=== PATIENT | female | born 1955 | race Caucasian/White ===

== ENCOUNTER 2016-04-26 05:00 | Emergency (ER) ==
--- NOTE | 2016-04-26 05:17 | PROVIDER DOCUMENTATION ---
HPI-Musculoskeletal Pain/Inj - GENERAL Chief Complaint: Extremity Injury Stated Complaint: FALL/ RIGHT ANKLE INJURY Time Seen by Provider: 04/26/16 05:04 Source: patient - HX OF PRESENT ILLNESS-MUSKULOSKELTAL Nature of Presenting Problem: pt miss one step and fell in the house ,inmediately w/lt ankle pain, unable to put wait on it ..pt denies any other injuries.. Quality of Pain: reports: aching, pressure Severity in ED: moderate Onset/Duration: just prior to arrival Timing: still present Modifying Factors: improves with: movement Similar Symptoms Previously?: No Recently seen or treated by another doctor?: No - FALL INJURY Location of Pain/Injury: reports: other (skinn abrasion on her chin) Pain Radiation: reports: no radiation Reason for Fall: reports: tripped Symptoms prior to fall:: reports: none Loss of Consciousness: no loss of consciousness Injury Associated Symptoms: reports: denies symptoms - BACK & NECK PAIN/INJURY Back/Neck Pain Location: denies: C-spine, T-spine, lumbar spine Back/Neck Pain Radiation: denies: headache Associated Symptoms: reports: denies symptoms History of Chronic Neck or Back Pain?: No - TRUNK INJURY Location of Injury(s)/Pain: denies: chest, abdomen Associated Symptoms: reports: denies symptoms - HIP/PELVIS PAIN/INJURY Hip Pain Location: denies: hip (R), hip (L), pelvis Review of Systems - Adult - REVIEW OF SYSTEMS - ADULT Constitutional: reports: see HPI Past History - Adult - PAST MEDICAL HISTORY-ADULT Review of Records: reports: Old Records Reviewed, Nursing Assessment Review. denies: Social history reviewed & non-contributory. Cardiovascular: reports: denies history Respiratory: reports: denies history Gastrointestinal: reports: denies history Genitourinary: reports: denies history Musculoskeletal: reports: denies history Neurological: reports: denies history Psychiatric: reports: denies history Diabetes Type: Type 2 Other Conditions: reports: denies history - PRIOR SURGERIES/PROCEDURES Surgical/Procedure History: reports: reviewed, not pertinent - IMMUNIZATION STATUS Childhood Immunizations: See Nurse Assessment Flu Vaccine: See Nurse Assessment - SOCIAL HISTORY Smoking: greater than 1 pack/day Substance Use: none/never Alcohol Use Frequency: never Living Situation: alone Physical Exam-Injury Related - Physical Exam-Injury Related Initial Vital Signs Reviewed: Yes General Appearance: appears well, alert, no apparent distress Eyes: PERRL/EOMI Head, Ears, Nose, Mouth & Throat: normocephalic/atraumatic, moist mucous membranes, normal ENT inspection, TMs normal, pharyngeal erythema Neck: non-tender Respiratory: chest non-tender, lungs clear, normal breath sounds, no pleuratic chest pain, no respiratory distress Cardiovascular: normal peripheral pulses Chest/Breast: normal breast inspection Abdominal Exam: normal bowel sounds, non tender, soft Lymphatic: no adenopathy Back Exam: normal inspection Extremity: pelvis stable, swelling (lt ankle), tenderness. negative: normal gait Integumentary: normal color, warm/dry, blanching, warm, abrasion (chin) Neurologic: regional operations manager II-XII nml as tested, grossly normal, no motor/sensory deficits Psych/Mental Status: normal mood/affect, normal thought content - Glascow Coma Score Best Eye Response (En): (4) open spontaneously Best Verbal Response ([place]): (5) oriented Best Motor Response ([place]): (6) obeys commands Progress - XRAY 1 XRAY Study: Ankle (calcaneus fx) Departure - Departure Time of Disposition Order: 05:33 DIAGNOSIS: Right ankle sprain, Calcaneus fracture, right Disposition: HOME 01 Certified Medical Emergency: Emergent Condition: Stable Prescriptions: Hydrocodone/Acetaminophen [[place] 7.5-325 Tablet] 1 each PO TID PRN PRN #20 tablet PRN Reason: Pain Referrals: Edwin Anderson MD [Primary Care Provider] - Vannesa Kathleen MD [STAFF PHYSICIAN] -
[2016-04-26 05:18] VITALS: BP 155/66
[2016-04-26] MEDS ORDERED: PERCOCET-10 PO ONE (05:36)
--- NOTE | 2016-04-26 09:23 | Diag Imaging Result Document ---
PROCEDURE NAME: ANKLE COMPLETE RIGHT - 04/26/2016 PLAIN RADIOGRAPH OF THE RIGHT ANKLE, 3 VIEWS: COMPARISON: None available. FINDINGS: There is a horizontal fracture involving the posterior aspect of the calcaneus with mild displacement. No other definite fracture, dislocation, or intrinsic osseous lesion is identified. The visualized joint spaces appear to be preserved. There is soft tissue edema about the ankle and hindfoot. IMPRESSION: Fracture of the calcaneus as described. MTDD
== END 2016-04-26 06:04 | disposition home or self-care (01) ==
LOC: EDBD → SUPCPDRO 05:00 → ED 05:00
DX: S92.001A Unspecified fracture of right calcaneus, initial encounter for closed fracture (principal); S93.401A Sprain of unspecified ligament of right ankle, initial encounter; M25.571 Pain in right ankle and joints of right foot; M25.471 Effusion, right ankle; S00.81XA Abrasion of other part of head, initial encounter; E11.9 Type 2 diabetes mellitus without complications; F17.210 Nicotine dependence, cigarettes, uncomplicated; W10.9XXA Fall (on) (from) unspecified stairs and steps, initial encounter